=== PATIENT | female | born 1935 | race Caucasian/White ===

== ENCOUNTER 2024-05-30 22:03 | Inpatient (IN) | payer OTHER ==
[~2024-05-30] VITALS: Ht 167.6 cm; Wt 68.0 kg
[2024-05-30 22:12] VITALS: BP 132/77; PULSE 99; RESP 18; TEMP 99.1; O2SAT 98
[2024-05-30 22:36] LABS: BASOPHILS % (AUTO) 0.2 % (0.0-2.0); HEMATOCRIT 36.4 % (36-48); LYMPHOCYTES # (AUTO) 1.7 K/uL (2.5-16.5); LYMPHOCYTES % (AUTO) 18.5 % (20.5-51.1); MEAN CORPUSCULAR HEMOGLOBIN 30 pg (27-31); MEAN CORPUSCULAR HGB CONC 33 g/dL (33-37); MEAN CORPUSCULAR VOLUME 91.7 fL (80-94); NEUTROPHILS # (AUTO) 5.6 K/uL (1.8-7.7); NEUTROPHILS % (AUTO) 60.3 % (42.2-75.2); PLATELET COUNT (AUTO) 198 K/uL (140-450); RED BLOOD CELL COUNT(AUTO) 3.97 MIL/uL (4.20-5.40); RED CELL DISTRIBUTION WIDTH 13.5 % (11.6-13.7); WHITE BLOOD COUNT (AUTO) 9.4 K/uL (4.8-10.8)
[2024-05-30 22:54] LABS: ANION GAP 11.6 (8-16); CALCIUM 9.6 mg/dL (8.5-10.1); CARBON DIOXIDE 29.1 mmol/L (21-32); CHLORIDE 102 mmol/L (98-107); CREATININE 1.2 mg/dL (0.6-1.3); GLUCOSE 104 mg/dL (74-106); POTASSIUM 3.7 mmol/L (3.5-5.1); SODIUM SERUM 139 mmol/L (136-145); UREA NITROGEN, BLOOD 21 mg/dL (7-18)
[2024-05-30 23:13] VITALS: O2SAT 95
[2024-05-30] MEDS: ALBUTEROL 0.083% 2.5 MG/3 ML NEBU INH ONE (23:20)
[2024-05-30 23:24] VITALS: O2SAT 96
[2024-05-30 23:26] VITALS: PULSE 97; RESP 22; O2SAT 96
[2024-05-30 23:53] LABS: BLOOD GAS PH 7.433 (7.35-7.45)
[2024-05-30 23:54] LABS: BLOOD GAS BASE EXCESS 2.9 mmol/L (-2.0-2.0); BLOOD GAS HCO3 27.5 mmol/L (22-26); BLOOD GAS O2 SAT% 93.4 % (92.0-98.5); BLOOD GAS PCO2 42.1 mmHg (35-45); BLOOD GAS PO2 69.2 mmHg (75-100)
[2024-05-31 00:02] LABS: FLU A ANTIGEN negative (NEGATIVE); FLU B ANTIGEN NEGATIVE (NEGATIVE)
[2024-05-31] MEDS ORDERED: PIPERACILLIN/TAZOBACTAM 3.375 GM VIAL IV ONE ×2 (00:19→07:29)
[2024-05-31] MEDS: PIPERACILLIN/TAZOBACTAM 3.375 GM in DEXTROSE 5% 50 ML IV ONE (00:24)
[2024-05-31] MEDS ORDERED: ATOR20TA PO (02:59)
[2024-05-31] MEDS ORDERED: METO25TE2 PO (02:59)
[2024-05-31] MEDS ORDERED: VITB12 PO (02:59)
[2024-05-31] MEDS ORDERED: NIRM1TAB9 PO (02:59)
[2024-05-31] MEDS ORDERED: MEMA10TA22 PO (02:59)
[2024-05-31] MEDS ORDERED: ASPI-1822 PO (02:59)
[2024-05-31] MEDS ORDERED: SENN-72 PO (02:59)
[2024-05-31] MEDS ORDERED: ONDANSETRON 4 MG/2 ML VIAL IVP PRN (03:00)
[2024-05-31] MEDS ORDERED: ALBUTEROL 0.083% 2.5 MG/3 ML NEBU INH PRN (03:00)
[2024-05-31] MEDS: NACL 0.9% 1,000 ML IV SCH (04:27)
[2024-05-31 05:31] VITALS: O2SAT 94
[2024-05-31] MEDS: PIPERACILLIN/TAZOBACTAM 3.375 GM in DEXTROSE 5% 50 ML IV SCH (07:40)
[2024-05-31 07:44] LABS: MAGNESIUM 1.6 mg/dL (1.8-2.4); PHOSPHORUS 3.4 mg/dL (2.5-4.9)
[2024-05-31] MEDS: METOPROLOL SUCCINATE 50 MG TABER PO SCH (09:00)
[2024-05-31] MEDS: CYANOCOBALAMIN 100 MCG TAB PO SCH (09:00)
[2024-05-31] MEDS: ATORVASTATIN 20 MG TAB PO SCH (09:00)
[2024-05-31] MEDS: SENNA 8.6 MG TAB PO SCH (09:00)
[2024-05-31] MEDS: ENOXAPARIN 30 MG/0.3 ML SYR SUBQ SCH (09:00)
[2024-05-31] MEDS: ASPIRIN 81 MG TAB.CHEW PO SCH (09:00)
[2024-05-31 10:00] VITALS: RESP 26; O2SAT 97
[2024-05-31 13:14] LABS: BASOPHILS % (AUTO) 0.1 % (0.0-2.0); HEMATOCRIT 36.2 % (36-48); HEMOGLOBIN 11.9 g/dL (12.0-16.0); LYMPHOCYTES # (AUTO) 0.8 K/uL (2.5-16.5); LYMPHOCYTES % (AUTO) 7.4 % (20.5-51.1); MEAN CORPUSCULAR HEMOGLOBIN 30 pg (27-31); MEAN CORPUSCULAR HGB CONC 33 g/dL (33-37); MEAN CORPUSCULAR VOLUME 91.4 fL (80-94); MONOCYTES # (AUTO) 1.1 K/uL (0.8-1.0); MONOCYTES % (AUTO) 10.1 % (1.7-9.3); NEUTROPHILS # (AUTO) 9.3 K/uL (1.8-7.7); NEUTROPHILS % (AUTO) 82.4 % (42.2-75.2); PLATELET COUNT (AUTO) 168 K/uL (140-450); RED BLOOD CELL COUNT(AUTO) 3.96 MIL/uL (4.20-5.40); RED CELL DISTRIBUTION WIDTH 13.4 % (11.6-13.7); WHITE BLOOD COUNT (AUTO) 11.3 K/uL (4.8-10.8)
[2024-05-31 13:29] LABS: ANION GAP 12.2 (8-16); CALCIUM 9.2 mg/dL (8.5-10.1); CARBON DIOXIDE 27.5 mmol/L (21-32); CHLORIDE 103 mmol/L (98-107); CREATININE 1.2 mg/dL (0.6-1.3); GLUCOSE 114 mg/dL (74-106); POTASSIUM 3.7 mmol/L (3.5-5.1); SODIUM SERUM 139 mmol/L (136-145); UREA NITROGEN, BLOOD 22 mg/dL (7-18)
[2024-05-31 16:00] VITALS: BP 135/76; PULSE 101; PULSE 106; RESP 19; TEMP 97.6; O2SAT 98
[2024-05-31 20:00] VITALS: BP 124/67; PULSE 126; PULSE 169; RESP 21; TEMP 98.6; O2SAT 96
[2024-05-31] MEDS: MEMANTINE 10 MG TAB PO SCH (20:50)
[2024-05-31] MEDS ORDERED: METOPROLOL 25 MG TAB PO SCH (21:20)
[2024-05-31] MEDS ORDERED: METOPROLOL 5 MG/5 ML VIAL IV SCH (22:00)
[2024-05-31] MEDS: METOPROLOL 5 MG/5 ML VIAL ONE (22:23)
[2024-05-31 23:53] VITALS: O2SAT 91; O2SAT 92
[2024-06-01] VITALS (12 sets, daily range): BP systolic 97–132; BP diastolic 55–74; PULSE 95–154; RESP 18–21; TEMP 97.1–98.3; O2SAT 96–100
[2024-06-01 06:04] LABS: BASOPHILS % (AUTO) 0.2 % (0.0-2.0); HEMATOCRIT 34.8 % (36-48); HEMOGLOBIN 11.5 g/dL (12.0-16.0); LYMPHOCYTES # (AUTO) 1.2 K/uL (2.5-16.5); LYMPHOCYTES % (AUTO) 11.3 % (20.5-51.1); MEAN CORPUSCULAR HEMOGLOBIN 30 pg (27-31); MEAN CORPUSCULAR HGB CONC 33 g/dL (33-37); MEAN CORPUSCULAR VOLUME 91.8 fL (80-94); MONOCYTES # (AUTO) 1.3 K/uL (0.8-1.0); NEUTROPHILS # (AUTO) 8.3 K/uL (1.8-7.7); NEUTROPHILS % (AUTO) 76.5 % (42.2-75.2); PLATELET COUNT (AUTO) 161 K/uL (140-450); RED BLOOD CELL COUNT(AUTO) 3.79 MIL/uL (4.20-5.40); RED CELL DISTRIBUTION WIDTH 13.2 % (11.6-13.7); WHITE BLOOD COUNT (AUTO) 10.8 K/uL (4.8-10.8)
[2024-06-01 06:23] LABS: MAGNESIUM 1.9 mg/dL (1.8-2.4); PHOSPHORUS 4.6 mg/dL (2.5-4.9)
[2024-06-01 06:33] LABS: ANION GAP 14.1 (8-16); CALCIUM 9.3 mg/dL (8.5-10.1); CARBON DIOXIDE 25.7 mmol/L (21-32); CHLORIDE 107 mmol/L (98-107); CREATININE 1.4 mg/dL (0.6-1.3); GLUCOSE 104 mg/dL (74-106); POTASSIUM 3.8 mmol/L (3.5-5.1); SODIUM SERUM 143 mmol/L (136-145); UREA NITROGEN, BLOOD 31 mg/dL (7-18)
[2024-06-01] MEDS: METOPROLOL 5 MG/5 ML VIAL IV SCH (10:28)
[2024-06-01] MEDS: PIPERACILLIN/TAZOBACTAM 2.25 GM in DEXTROSE 5% 50 ML IV SCH (12:00)
[2024-06-02] VITALS (11 sets, daily range): BP systolic 97–128; BP diastolic 51–69; PULSE 87–131; RESP 16–22; TEMP 97.1–98.7; O2SAT 95–99
[2024-06-02 06:35] LABS: BASOPHILS % (AUTO) 0.3 % (0.0-2.0); HEMATOCRIT 31.3 % (36-48); HEMOGLOBIN 10.4 g/dL (12.0-16.0); LYMPHOCYTES # (AUTO) 1.1 K/uL (2.5-16.5); LYMPHOCYTES % (AUTO) 11.7 % (20.5-51.1); MEAN CORPUSCULAR HEMOGLOBIN 31 pg (27-31); MEAN CORPUSCULAR HGB CONC 33 g/dL (33-37); MEAN CORPUSCULAR VOLUME 92.4 fL (80-94); MONOCYTES # (AUTO) 0.7 K/uL (0.8-1.0); MONOCYTES % (AUTO) 7.7 % (1.7-9.3); NEUTROPHILS # (AUTO) 7.6 K/uL (1.8-7.7); NEUTROPHILS % (AUTO) 80.3 % (42.2-75.2); PLATELET COUNT (AUTO) 159 K/uL (140-450); RED BLOOD CELL COUNT(AUTO) 3.38 MIL/uL (4.20-5.40); RED CELL DISTRIBUTION WIDTH 13.3 % (11.6-13.7); WHITE BLOOD COUNT (AUTO) 9.4 K/uL (4.8-10.8)
[2024-06-02 07:07] LABS: ANION GAP 15.3 (8-16); CALCIUM 8.8 mg/dL (8.5-10.1); CARBON DIOXIDE 24.3 mmol/L (21-32); CHLORIDE 112 mmol/L (98-107); CREATININE 1.1 mg/dL (0.6-1.3); GLUCOSE 88 mg/dL (74-106); POTASSIUM 3.6 mmol/L (3.5-5.1); SODIUM SERUM 148 mmol/L (136-145); UREA NITROGEN, BLOOD 34 mg/dL (7-18)
[2024-06-03] VITALS (7 sets, daily range): BP systolic 113–144; BP diastolic 62–80; PULSE 88–121; RESP 16–20; TEMP 97.6–98.2; O2SAT 92–99
[2024-06-03 06:11] LABS: BASOPHILS % (AUTO) 0.4 % (0.0-2.0); EOSINOPHILS % (AUTO) 0.1 % (0.0-4.0); HEMATOCRIT 28.3 % (36-48); HEMOGLOBIN 9.4 g/dL (12.0-16.0); LYMPHOCYTES # (AUTO) 0.8 K/uL (2.5-16.5); MEAN CORPUSCULAR HEMOGLOBIN 31 pg (27-31); MEAN CORPUSCULAR HGB CONC 33 g/dL (33-37); MEAN CORPUSCULAR VOLUME 92.1 fL (80-94); MONOCYTES # (AUTO) 0.7 K/uL (0.8-1.0); MONOCYTES % (AUTO) 12.2 % (1.7-9.3); NEUTROPHILS # (AUTO) 3.9 K/uL (1.8-7.7); NEUTROPHILS % (AUTO) 73.3 % (42.2-75.2); PLATELET COUNT (AUTO) 166 K/uL (140-450); RED BLOOD CELL COUNT(AUTO) 3.07 MIL/uL (4.20-5.40); RED CELL DISTRIBUTION WIDTH 13.4 % (11.6-13.7); WHITE BLOOD COUNT (AUTO) 5.4 K/uL (4.8-10.8)
[2024-06-03 06:26] LABS: ANION GAP 13.5 (8-16); CARBON DIOXIDE 25.7 mmol/L (21-32); CHLORIDE 115 mmol/L (98-107); CREATININE 1.1 mg/dL (0.6-1.3); GLUCOSE 100 mg/dL (74-106); POTASSIUM 3.2 mmol/L (3.5-5.1); SODIUM SERUM 151 mmol/L (136-145); UREA NITROGEN, BLOOD 28 mg/dL (7-18)
[2024-06-03] MEDS ORDERED: LEVO-481 PO (14:01)
[2024-06-03] MEDS: POTASSIUM CHLORIDE 20% 40 MEQ/15 ML UDC GT SCH (17:23)
== END 2024-06-03 18:45 | DRG 871 ==
LOC: MED 22:03 → MTU 05-31 03:08
PROVIDERS: ADMIT Student in an Organized Health Care Education/Training Program; ATTEND Student in an Organized Health Care Education/Training Program
PROC: 5A0935A Assistance with Respiratory Ventilation, Less than 24 Consecutive Hours, High Flow/Velocity Cannula (ICD-10-PCS; principal; 2024-05-31)
DX: A41.9 Sepsis, unspecified organism (principal); J18.9 Pneumonia, unspecified organism; J96.01 Acute respiratory failure with hypoxia; E87.20 Acidosis, unspecified; J44.0 Chronic obstructive pulmonary disease with (acute) lower respiratory infection; I10 Essential (primary) hypertension; F03.90 Unspecified dementia, unspecified severity, without behavioral disturbance, psychotic disturbance, mood disturbance, and anxiety; Z20.822 Contact with and (suspected) exposure to COVID-19; E78.5 Hyperlipidemia, unspecified
CPT/HCPCS: 36415; 36600; 71045; 80048; 82803; 83605; 83735; 84100; 84484; 85025; 87040; 87081; 93005; 94640; 96374; 97110; 97116; 97163-GP; 97530; 99291; J1650; J2543; J3490; J7060; J7613